=== PATIENT | male | born 1990 | race Caucasian/White ===

== ENCOUNTER → 2017-02-14 | Outpatient (CLI) | payer OTHER ==
--- NOTE | 2017-02-14 15:56 | KCIC ---
MR of the right shoulder Indication: Pain and tightness for 2 years. Technique: Standard multiplanar sequences are obtained. Findings: Acromioclavicular joint:Intact. Rotator cuff: Thickening and hyperintensity compatible with tendinosis. Bursal surface irregularity at the supraspinatus and infraspinatus tendons, less than 20 percent deep. No large, deep or full-thickness rotator cuff tear. No significant subdeltoid bursal effusion. Glenohumeral cartilage: Mild chondromalacia. Fluid: Trace joint fluid. Labrum: Tear of the posterosuperior labrum. Mild degenerative signal within the posteroinferior labrum. Biceps tendon: Intact Bones: There is an impaction type fracture at the anteromedial humeral head. This appears chronic, with subjacent cystic changes of the bone. The appearance suggests a reverse Hill Sachs fracture from a previous posterior dislocation. No acute fracture or aggressive bone destruction. Soft tissue: No acute findings. Impression: 1. Posterosuperior labral tear. Posteroinferior labral degeneration. 2. Chronic appearing compression fracture of the anteromedial and superior humeral head, likely due to prior posterior dislocation. 3. Mild glenohumeral joint chondromalacia. 4. Rotator cuff tendinosis. There is mild bursal surface fraying and irregularity of the supraspinatus and infraspinatus tendons but without deep or full-thickness tear. Electronically signed by: Babatunde Snow MD (02/14/2017 3:52 PM) [id number]
== END | disposition home or self-care (01) ==
LOC: KCIC MRI 13:35
PROVIDERS: ATTEND Orthopaedic Surgery
DX: S43.401A Unspecified sprain of right shoulder joint, initial encounter (principal); M94.211 Chondromalacia, right shoulder; X58.XXXA Exposure to other specified factors, initial encounter; Y93.89 Activity, other specified; Y92.89 Other specified places as the place of occurrence of the external cause; Y99.8 Other external cause status
CPT/HCPCS: 73221